=== PATIENT | male | born 1960 | race Caucasian/White ===

== ENCOUNTER 2020-01-01 12:05 | Emergency (ER) | payer OTHER ==
[2020-01-01 12:20] VITALS: PULSE 103; BMI 24.2
[2020-01-01] MEDS ORDERED: HALOPERIDOL LACTATE 5 MG/ML ONE ×2 (12:47→17:52)
[2020-01-01] MEDS ORDERED: HALOPERIDOL LACTATE 5 MG/ML IM ONE ×2 (12:51→17:48)
[2020-01-01] MEDS ORDERED: DIPHTH,PERTUSS(ACELL),TET 0.5 ML DISP.SYRIN IM ONE ×2 (12:56→13:14)
[2020-01-01] MEDS ORDERED: SODIUM CHLORIDE 0.9% 500 ML INFUS.BAG IV ONE (12:57)
[2020-01-01] MEDS ORDERED: LIDOCAINE HCL 1%, 10 MG/ML (50 mL VIAL) SQ ONE (13:07)
[2020-01-01 13:08] LABS: BASO % 0.3 % (0-2.0); EOS % 1.4 % (0-4.5); HEMATOCRIT 33.5 % (35.4-49); HEMOGLOBIN 11.3 GM/dL (11.7-16.9); LYMPH % 6.6 % (8-40); MCH 31.8 pg (25.7-33.7); MCHC 33.9 g/dl (32.0-35.9); MEAN CELL VOLUME 93.8 fl (80-96); MEAN PLT VOLUME 8.4 fl (7.5-11.1); NEUT % 83.7 % (42.8-82.8); PLATELET COUNT 249 K/MM3 (134-434); RBC 3.57 M/mm3 (4.00-5.60); RDW 13.7 % (11.9-15.9); WHITE BLOOD COUNT 9.7 K/mm3 (4.0-10.0)
[2020-01-01] MEDS ORDERED: LIDOCAINE HCL 1%, 10 MG/ML (20ML VIAL) ONE (13:12)
[2020-01-01] MEDS ORDERED: LORazepam 2 MG/ML SDV VIAL ONE ×2 (13:13→18:18)
--- NOTE | 2020-01-01 13:39 | PDOC ---
Documentation entered by David Juares SCRIBE, acting as scribe for Julianna Thakkar MD. Julianna Thakkar MD: This documentation has been prepared by the Blanquita quiñones Xhesika, SCRIBE, under my direction and personally reviewed by me in its entirety. I confirm that the documentation accurately reflects all work, treatment, procedures, and medical decision making performed by me. History of Present Illness - General Chief Complaint: Injury Stated Complaint: FALL/HEAD LAC Time Seen by Provider: 01/01/20 12:24 History Source: Patient Exam Limitations: No Limitations - History of Present Illness Initial Comments: 01/01/20 12:53 HPI The patient is a 59 y/o male with a PMH of schizophrenia, CVA, hemiparesis following a nontraumatic intracerebral hemorrhage, atherosclerotic heart disease , BPH, hyperlipidemia, hard of hearing, legally blind, psych disorder, combative at baseline, who presents to the ED BIBA from [facility] for facial laceration/to right upper eyebrow s/p 2 unwitnessed falls at facility. Per [facility] notes, the patient was found crawling on the floor, became combative and received 1mg ativan. History limited due to the patient's clinical condition/ dementia/CVA. baseline is noted to be agitated as well as hemiparesis from prior stroke (unclear which extremity is his residual deficit). no ASA or anticoagulant use. Allergies: sodium hypochlorite Past Medical History/PSH: schizophrenia, CVA, hemiparesis following a nontraumatic intracerebral hemorrhage, atherosclerotic heart disease, BPH, hyperlipidemia, hard of hearing, legally blind, psych disorder, combative at baseline Social history: lives in [facility] Meds: as documented in EMR Family history: noncontributory PMD: Jhonatan Gardiner Review of systems Limited due to patients clinical condition PE General: GCS 14 NAD, baseline demented. older then age stated. HEENT: +L eyebrow small laceration. + 4cm R eye laceration. + R lateral lower eyebrow laceration. No battles sign or raccoon eyes. No e/o ocular. No e/o septal hematoma, nasal bridge stable. poor dentition. b/l corneal opacification , EOMI. Neck: neck supple, no midline C spine tenderness or deformity, ROM intact. No anterior mass or crepitus, trachea midline. Resp: Lungs clear bilaterally Chest: no clavicle or chest wall tenderness or crepitus CVS: RRR, 2+ pulses throughout. Abdomen: Abdomen soft, nontender, nondistended. Back: + small abrasion to L thoracic back. Back nontender, no midline spinal tenderness along cervical/thoracic/lumbar spine, FROM, no stepoffs. MSK: +contracted to all extremities. Neuro: +nonverbal, baseline demented, agitated, arousable to painful stimuli - baseline with hemiparesis, unclear which extremity is his baseline. Skin: intact, normal color and well perfused. 01/01/20 14:38 01/01/20 14:43 01/01/20 14:43 Past History - Past Medical History Allergies/Adverse Reactions: Allergies Allergy/AdvReac Type Severity Reaction Status Date / Time sodium hypochlorite solution AdvReac Unknown Verified 01/01/20 12:20 Home Medications: Ambulatory Orders Benztropine Mesylate 1 mg PO BID 07/03/18 Lacosamide [Vimpat -] 150 mg PO DAILY 07/03/18 Polyvinyl Alcohol [Artificial Tears] 1 drop OD DAILY 07/03/18 Simvastatin [Zocor -] 20 mg PO HS 07/03/18 Tamsulosin HCl [Flomax] 0.4 mg PO HS 07/03/18 Citalopram Hydrobromide [Celexa -] 10 mg PO DAILY 01/01/20 Lorazepam [Ativan] 1 mg IM PRN 01/01/20 Quetiapine Fumarate [Seroquel -] 50 mg PO HS 01/01/20 Quetiapine Fumarate [Seroquel -] 200 mg PO HS 01/01/20 CVA: Yes (w/ dysphagia/hemiplegia/hemiparesis/ AMS) COPD: No Dementia: Yes (With BEHAVIORAL DISTURBANCES/combative) Disorders: Yes (ENLARGED PROSTATE W/ URINARY TRACT SYMPTOMS) Psychiatric Problems: Yes (PSYCHOTIC DISORDER W/ DELUSION/ ANXIETY) Seizures: Yes Thyroid Disease: Yes (Bacteremia) - Immunization History Immunization Up to Date: Yes - Psycho Social/Smoking Cessation Hx Smoking History: Unknown if ever smoked Have you smoked in the past 12 months: No Hx Alcohol Use: No Drug/Substance Use Hx: No Substance Use Type: None Hx Substance Use Treatment: No *Physical Exam - Vital Signs Last Vital Signs Temp Pulse Resp BP Pulse Ox 97.4 F L 103 H 16 99/63 97 01/01/20 12:05 01/01/20 12:05 01/01/20 12:05 01/01/20 12:05 01/01/20 12:05 Procedures - Laceration/Wound Repair Right Upper Face Wound Length: 2.6 to 5.0 cm Wound Explored: clean Wound's Depth, Shape: contused tissue Irrigated w/ Saline: Yes Betadine Prep: No Anesthesia: 1% Lidocaine Amount of Anesthetic (ccs): 2 Wound Debrided: minimal Wound Repaired With: Sutures Suture Size/Type: 5:0 Number of Sutures: 5 Layer Closure: No Sterile Dressing Applied: Yes Splint Applied: No Progress: 01/01/20 14:41 I supervised resident with the procedure/as documented, uncomplicated. bacitracin to the wounds/abrasions, bandaid placed over wounds ED Treatment Course - LABORATORY CBC & Chemistry Diagram: 01/01/20 12:51 01/01/20 12:51 - ADDITIONAL ORDERS Additional order review: 01/01/20 12:51 RBC 3.57 L MCV 93.8 MCHC 33.9 RDW 13.7 MPV 8.4 Neutrophils % 83.7 H D Lymphocytes % 6.6 L D Monocytes % 8.0 Eosinophils % 1.4 Basophils % 0.3 - RADIOLOGY Radiology Studies Ordered: Category Date Time Status CERVICAL SPINE CT W/O CONTR [CT] Stat CT Scan 01/01/20 12:[address] WITHOUT CONTRAST [CT] Stat CT Scan 01/01/20 12:53 Ordered CHEST X-RAY PORTABLE* [RAD] Stat Radiology 01/01/20 12:54 Completed - Medications Given in the ED: ED Medications Discontinued Medications Generic Name Dose Route Start Last Admin Trade Name Freq PRN Reason Stop Dose Admin Diphtheria/Tetanus/Acell Pertussis 0.5 ml 01/01/20 12:56 01/01/20 13:20 Boostrix - IM 01/01/20 12:57 0.5 ml .ONCE ONE Administration Haloperidol 5 mg 01/01/20 12:51 01/01/20 12:52 Haldol Injection (Fast Acting) - IM 01/01/20 12:52 5 mg ONCE ONE Administration Lidocaine HCl 20 ml 01/01/20 13:07 01/01/20 13:19 Xylocaine 1% SQ 01/01/20 13:08 20 ml ONCE ONE Administration Lorazepam 1 mg 01/01/20 12:59 01/01/20 13:19 Ativan Injection - IVPUSH 01/01/20 13:00 1 mg ONCE ONE Administration Sodium Chloride 1,000 ml 01/01/20 12:57 01/01/20 13:19 Normal Saline - IV 01/01/20 12:58 1,000 ml ONCE ONE Administration Medical Decision Making - Medical Decision Making 01/01/20 13:37 Vital Signs Temp Pulse Resp BP Pulse Ox 97.4 F L 103 H 16 99/63 97 01/01/20 12:05 01/01/20 12:05 01/01/20 12:05 01/01/20 12:05 01/01/20 12:05 VS reviewed, soft BP and tachycardic s/p ativan, likely side effect effect wearing off upon exam, gets very agitated, EM x4, baseline nonverbal with prior CVA additional ativan and haldol given due to extreme agitation and poor cooperation Trauma ddx: ICH, SDH/ EDH, C spine injury/strain, abrasion/facial laceration, MSK contusion, msk spasms. Rib fractures. Clinically doubt Intra abdominal and thoracic injuries/bleed secondary exam unremarkable, doubt extremity sprain/fracture, pelvis fx, as he is EM x4 will work up organic cause of his agitation. Trauma Neg: No evidence of skull fracture, intracranial bleed, dental trauma, cervical, thoracic, or vertebral fracture or subluxation, no suspicion of thoracic, abdominal, pelvic or extremity injury by exam or clinical findings. 01/01/20 14:42 Tetanus updated, laceration repair by resident physician see their note as I had supervised the procedure in its entirety, 5 sutures were placed without complications. To the right upper eyebrow laceration. basic labs and lytes wnl, trop neg. baseline anemia. no infectious sx straight cath for UA, check for infection as etiology for fall/agitation neg UA for infection ultimate dispo pending reeval, s/o to Dr Croft. anticipate discharge back to [facility], suture removal instructions in 5-7 days , wound care instructions. fall prevention safety. 01/01/20 16:30 01/02/20 09:31 Discharge - Discharge Information Problems reviewed: Yes Clinical Impression/Diagnosis: Agitation, Fall Laceration of face Qualifiers: Encounter type: initial encounter Qualified Code(s): S01.81XA - Laceration without foreign body of other part of head, initial encounter Condition: Stable Disposition: ALF FACILITY - Admission No - Follow up/Referral Referrals: Jhonatan Ventura MD [Primary Care Provider] - - Patient Discharge Instructions Patient Printed Discharge Instructions: DI for Laceration Repair -- Simple, How to Prevent Falls, DI for Closed Head Injury Additional Instructions: your laceration was stitched. suture will require removal in 5-7 days, to his right upper eyebrow. bacitracin to the wounds twice to three times a day. can wash with warm water and mild soap. was evaluated in the emergency room with a head CT which was negative. the cervical spine was negative. the Chest xray was negative. urinalysis was negative for infection. - Post Discharge Activity
[2020-01-01 13:44] LABS: CALCIUM 9.4 mg/dL (8.5-10.1); CHLORIDE 107 mmol/L (98-107); POTASSIUM 4.5 mmol/L (3.5-5.1); SODIUM 141 mmol/L (136-145)
[2020-01-01 13:46] LABS: ALBUMIN 3.3 g/dl (3.4-5.0); ALK PHOS 123 U/L (45-117); ANION GAP 3 MMOL/L (8-16); BILIRUBIN,TOTAL 0.2 mg/dL (0.2-1); BLOOD UREA NITROGEN 22.5 mg/dL (7-18); CO2 30 mmol/L (21-32); GLUCOSE,RANDOM 86 mg/dL (74-106); SGOT/AST 46 U/L (15-37); SGPT/ALT 47 U/L (13-61); TOT PROT 6.9 g/dl (6.4-8.2)
[2020-01-01 13:48] LABS: INR 0.95 (0.83-1.09); PROTHROMBIN TIME (PATIENT) 11.2 SEC (9.7-13.0)
--- NOTE | 2020-01-01 14:11 | PDOC ---
*Physical Exam - Vital Signs Last Vital Signs Temp Pulse Resp BP Pulse Ox 97.4 F L 103 H 16 99/63 97 01/01/20 12:05 01/01/20 12:05 01/01/20 12:05 01/01/20 12:05 01/01/20 12:05 ED Treatment Course - LABORATORY CBC & Chemistry Diagram: 01/01/20 12:51 01/01/20 12:51 - ADDITIONAL ORDERS Additional order review: Laboratory Results 01/01/20 01/01/20 12:51 12:51 PT with INR 11.20 INR 0.95 PTT (Actin FS) 33.0 Sodium 141 Potassium 4.5 Chloride 107 Carbon Dioxide 30 Anion Gap 3 L BUN 22.5 H Creatinine 1.0 Est GFR (CKD-EPI)AfAm 95.06 Est GFR (CKD-EPI)NonAf 82.02 Random Glucose 86 Calcium 9.4 Total Bilirubin 0.2 AST 46 H ALT 47 Alkaline Phosphatase 123 H Creatine Kinase 601 H Creatine Kinase Index 1.0 CK-MB (CK-2) 6.4 H Troponin I < 0.02 Total Protein 6.9 Albumin 3.3 L 01/01/20 12:51 RBC 3.57 L MCV 93.8 MCHC 33.9 RDW 13.7 MPV 8.4 Neutrophils % 83.7 H D Lymphocytes % 6.6 L D Monocytes % 8.0 Eosinophils % 1.4 Basophils % 0.3 - Medications Given in the ED: ED Medications Discontinued Medications Generic Name Dose Route Start Last Admin Trade Name Freq PRN Reason Stop Dose Admin Diphtheria/Tetanus/Acell Pertussis 0.5 ml 01/01/20 12:56 01/01/20 13:20 Boostrix - IM 01/01/20 12:57 0.5 ml .ONCE ONE Administration Haloperidol 5 mg 01/01/20 12:51 01/01/20 12:52 Haldol Injection (Fast Acting) - IM 01/01/20 12:52 5 mg ONCE ONE Administration Lidocaine HCl 20 ml 01/01/20 13:07 01/01/20 13:19 Xylocaine 1% SQ 01/01/20 13:08 20 ml ONCE ONE Administration Lorazepam 1 mg 01/01/20 12:59 01/01/20 13:19 Ativan Injection - IVPUSH 01/01/20 13:00 1 mg ONCE ONE Administration Sodium Chloride 1,000 ml 01/01/20 12:57 01/01/20 13:19 Normal Saline - IV 01/01/20 12:58 1,000 ml ONCE ONE Administration Discharge - Discharge Information Problems reviewed: Yes Clinical Impression/Diagnosis: Agitation Laceration of face Qualifiers: Encounter type: initial encounter Qualified Code(s): S01.81XA - Laceration without foreign body of other part of head, initial encounter Condition: Fair - Follow up/Referral Referrals: Jhonatan Ventura MD [Primary Care Provider] - - Patient Discharge Instructions - Post Discharge Activity Laceration/Wound Repair - Laceration/Wound Repair Right Head Remarks: 3 cm laceration to right eyebrow. Wound was copiously irrigated with sterile NS , and anesthetized with 3 mL of lidocaine 1%. Wound carefully explored and no foreign body, tendon injury, or nonviable tissue were noted. Using sterile technique 5-0 suture nylon was used to reapproximate the wound. 5 interrupted- sutures were placed. Patient tolerated procedure well, no complications. Patient advised to look for and return for any signs of infection such as redness, swelling, discharge, or worsening pain. Patient advised to return for suture removal within 7 days.
[2020-01-01 17:37] VITALS: BP 115/78
[2020-01-01 17:49] VITALS: TEMP 97.8
[2020-01-01 18:05] LABS: PH,URINE 5.5 (5.0-8.0); URINE APPEARANCE CLEAR; URINE BILIRUBIN NEGATIVE (NEGATIVE); URINE COLOR YELLOW; URINE GLUCOSE (UA) NEGATIVE (NEGATIVE); URINE KETONE NEGATIVE (NEGATIVE); URINE LEUK ESTERASE NEGATIVE (NEGATIVE); URINE NITRITE NEGATIVE (NEGATIVE); URINE PROTEIN NEGATIVE (NEGATIVE); URINE UROBILINOGEN 0.2 mg/dL (0.2-1.0)
--- NOTE | 2020-01-01 18:36 | PDOC ---
*Physical Exam - Vital Signs Last Vital Signs Temp Pulse Resp BP Pulse Ox 97.8 F 103 H 20 115/78 98 01/01/20 17:00 01/01/20 17:00 01/01/20 17:00 01/01/20 17:00 01/01/20 17:00 ED Treatment Course - LABORATORY CBC & Chemistry Diagram: 01/01/20 12:51 01/01/20 12:51 - ADDITIONAL ORDERS Additional order review: Laboratory Results 01/01/20 01/01/20 01/01/20 15:15 12:51 12:51 PT with INR 11.20 INR 0.95 PTT (Actin FS) 33.0 Sodium 141 Potassium 4.5 Chloride 107 Carbon Dioxide 30 Anion Gap 3 L BUN 22.5 H Creatinine 1.0 Est GFR (CKD-EPI)AfAm 95.06 Est GFR (CKD-EPI)NonAf 82.02 Random Glucose 86 Calcium 9.4 Total Bilirubin 0.2 AST 46 H ALT 47 Alkaline Phosphatase 123 H Creatine Kinase 601 H Creatine Kinase Index 1.0 CK-MB (CK-2) 6.4 H Troponin I < 0.02 Total Protein 6.9 Albumin 3.3 L Urine Color Yellow Urine Appearance Clear Urine pH 5.5 Ur Specific [place] 1.022 Urine Protein Negative Urine Glucose (UA) Negative Urine Ketones Negative Urine Blood Negative Urine Nitrite Negative Urine Bilirubin Negative Urine Urobilinogen 0.2 Ur Leukocyte Esterase Negative 01/01/20 12:51 RBC 3.57 L MCV 93.8 MCHC 33.9 RDW 13.7 MPV 8.4 Neutrophils % 83.7 H D Lymphocytes % 6.6 L D Monocytes % 8.0 Eosinophils % 1.4 Basophils % 0.3 - Medications Given in the ED: ED Medications Discontinued Medications Generic Name Dose Route Start Last Admin Trade Name Freq PRN Reason Stop Dose Admin Diphtheria/Tetanus/Acell Pertussis 0.5 ml 01/01/20 12:56 01/01/20 13:20 Boostrix - IM 01/01/20 12:57 0.5 ml .ONCE ONE Administration Haloperidol 5 mg 01/01/20 12:51 01/01/20 12:52 Haldol Injection (Fast Acting) - IM 01/01/20 12:52 5 mg ONCE ONE Administration Haloperidol 5 mg 01/01/20 17:48 01/01/20 17:55 Haldol Injection (Fast Acting) - IM 01/01/20 17:49 5 mg ONCE ONE Administration Lidocaine HCl 20 ml 01/01/20 13:07 01/01/20 13:19 Xylocaine 1% SQ 01/01/20 13:08 20 ml ONCE ONE Administration Lorazepam 1 mg 01/01/20 12:59 01/01/20 13:19 Ativan Injection - IVPUSH 01/01/20 13:00 1 mg ONCE ONE Administration Lorazepam 2 mg 01/01/20 17:48 01/01/20 18:19 Ativan Injection - IVPUSH 01/01/20 17:49 2 mg ONCE ONE Administration Sodium Chloride 1,000 ml 01/01/20 12:57 01/01/20 13:19 Normal Saline - IV 01/01/20 12:58 1,000 ml ONCE ONE Administration Medical Decision Making - Medical Decision Making 01/01/20 18:33 59 yo male h/o cva, hemiplegia, schizophrenia, here s/p unwitenssed fall. assumed care of the patient at 1630. pending ct head c spine and ua. ct head and c spine are unremarkabl. cxr negative. labs negativ.e ua normal. was give haldol and ativan for agitation. at this point will transfer back to [facility]. Discharge - Discharge Information Problems reviewed: Yes Clinical Impression/Diagnosis: Agitation, Fall Laceration of face Qualifiers: Encounter type: initial encounter Qualified Code(s): S01.81XA - Laceration without foreign body of other part of head, initial encounter Condition: Stable Disposition: [facility] FACILITY - Follow up/Referral Referrals: Jhonatan Ventura MD [Primary Care Provider] - - Patient Discharge Instructions Patient Printed Discharge Instructions: DI for Laceration Repair -- Simple, How to Prevent Falls, DI for Closed Head Injury Additional Instructions: your laceration was stitched. suture will require removal in 5-7 days, to his right upper eyebrow. bacitracin to the wounds twice to three times a day. can wash with warm water and mild soap. was evaluated in the emergency room with a head CT which was negative. the cervical spine was negative. the Chest xray was negative. urinalysis was negative for infection. - Post Discharge Activity
== END 2020-01-01 19:41 ==
LOC: JER 12:05
PROC: 0JQ10ZZ Repair Face Subcutaneous Tissue and Fascia, Open Approach (ICD-10-PCS; principal; 2020-01-01)
DX: S01.111A Laceration without foreign body of right eyelid and periocular area, initial encounter (principal); S01.112A Laceration without foreign body of left eyelid and periocular area, initial encounter; S20.412A Abrasion of left back wall of thorax, initial encounter; W18.39XA Other fall on same level, initial encounter; Z91.81 History of falling; Y93.89 Activity, other specified; Y92.122 Bedroom in nursing home as the place of occurrence of the external cause; Y99.8 Other external cause status; I25.10 Atherosclerotic heart disease of native coronary artery without angina pectoris; G40.909 Epilepsy, unspecified, not intractable, without status epilepticus; F03.91 Unspecified dementia, unspecified severity, with behavioral disturbance; N40.1 Benign prostatic hyperplasia with lower urinary tract symptoms; I69.859 Hemiplegia and hemiparesis following other cerebrovascular disease affecting unspecified side; I69.821 Dysphasia following other cerebrovascular disease; E78.5 Hyperlipidemia, unspecified; H54.8 Legal blindness, as defined in USA; F28 Other psychotic disorder not due to a substance or known physiological condition; Z88.8 Allergy status to other drugs, medicaments and biological substances
CPT/HCPCS: 12013; 36415; 70450-TC; 71045-TC-FY; 72125-TC; 80053; 81003; 82550; 82553; 84484; 85025; 85610; 85730; 87086; 90715; 99285-25